=== PATIENT | female | born 1980 | race Caucasian/White ===

== ENCOUNTER 2016-09-23 10:03 | Day surgery (SDC) | payer BC ==
[~2016-09-23] VITALS: Ht 154.9 cm; Wt 83.0 kg
[2016-09-23 10:44] LABS: HEMATOCRIT 41.1 % (36.0-46.0); MCH 27.8 PG (29.0-34.0); MCHC 32.6 G/DL (30.0-36.0); MCV 85.3 FL (83-99); MEAN PLAT.VOLUME 10.2 uM^3 (9.5-12.4); PLATELET COUNT 372 K/uL (156-360); RBC DIS.WIDTH-CV 12.9 % (11.8-14.6); RBC DIS.WIDTH-SD 40.2 % (39-53); RED BLOOD COUNT 4.82 M/uL (3.80-5.20)
[2016-09-23 10:52] LABS: CHLORIDE 103 mEq/L (99-109); POTASSIUM 4.4 mEq/L (3.7-5.4); SODIUM 137 mEq/L (136-147)
[2016-09-23 10:55] LABS: GLUCOSE 101 mg/dL (70-99)
[2016-09-23 10:56] LABS: ANION GAP 8 MEQ/L (2-14)
[2016-09-23 10:57] LABS: TOTAL BILIRUBIN 1.5 mg/dL (0.0-1.0)
[2016-09-23 11:02] LABS: ALKALINE PHOSPHATASE 82 IU/L (3-129); GFR ESTIMATE (CALCULATED) > 59 mL/min/; UREA NITROGEN (BUN) 7 mg/dL (9-23)
[2016-09-23 11:07] LABS: QUANTITATIVE HCG < 4.0 MIU/ML
[2016-09-23 11:33] LABS: ADD MIUA? NO; BILIRUBIN NEGATIVE; BLOOD NEGATIVE; COLOR STRAW ((YELLOW)); GLUCOSE (STRIP) NEGATIVE; KETONES NEGATIVE; LEUKOCYTES NEGATIVE; NITRITE NEGATIVE; PROTEIN (STRIP) NEGATIVE; SPECIFIC GRAVITY 1.002 (1.000-1.030); UCUL ADDED? NO; UROBILINOGEN 0.2 MG/DL (0.2-1.0)
[2016-09-23] MEDS ORDERED: OMEPRAZOLE20 MG PO (19:35)
[2016-09-23] MEDS ORDERED: XANAX1 MG PO (19:36)
[2016-09-23] MEDS ORDERED: BUSPAR5 MG PO (19:36)
[2016-09-23 19:47] VITALS: BP 124/58
[2016-09-23] MEDS ORDERED: HYDROCODON-ACE1 EAC7 PO (23:26)
[2016-09-23] MEDS ORDERED: OXYCODONE-APAP1 EACH PO (23:26)
[2016-09-24] VITALS (8 sets, daily range): BP systolic 109–131; BP diastolic 55–82
[2016-09-24 06:22] LABS: HEMATOCRIT 37.4 % (36.0-46.0); MCH 28.1 PG (29.0-34.0); MCHC 33.2 G/DL (30.0-36.0); MCV 84.6 FL (83-99); MEAN PLAT.VOLUME 9.9 uM^3 (9.5-12.4); PLATELET COUNT 292 K/uL (156-360); RBC DIS.WIDTH-CV 12.8 % (11.8-14.6); RBC DIS.WIDTH-SD 39.5 % (39-53); RED BLOOD COUNT 4.42 M/uL (3.80-5.20); WHITE BLOOD COUNT 11.7 K/uL (4.1-10.2)
[2016-09-24 06:52] LABS: ANION GAP 10 MEQ/L (2-14); CHLORIDE 106 MEQ/L (99-109); GFR ESTIMATE (CALCULATED) > 59 mL/min/; GLUCOSE 98 mg/dL (70-99); POTASSIUM 4.5 MEQ/L (3.7-5.4); SAMPLE HEMOLYSIS CHECK 0; SAMPLE ICTERIC CHECK 0; SAMPLE LIPEMIA CHECK 0; SODIUM 138 MEQ/L (136-147); UREA NITROGEN (BUN) 9 mg/dL (9-23)
[2016-09-24] MEDS ORDERED: AUGMENTIN875 MG PO (10:29)
[2016-09-25 03:36] VITALS: BP 99/56
[2016-09-25 08:00] VITALS: BP 113/73
== END 2016-09-25 16:15 | disposition home or self-care (01) ==
LOC: EME 10:03 → SDC 18:01 → 2EASTP 18:05
PROVIDERS: Surgery
PROC: 0DTJ0ZZ Resection of Appendix, Open Approach (ICD-10-PCS; principal; 2016-09-23)
DX: K35.80 Unspecified acute appendicitis (principal); Q43.3 Congenital malformations of intestinal fixation; H53.2 Diplopia; R42 Dizziness and giddiness; E66.9 Obesity, unspecified; Z68.35 Body mass index [BMI] 35.0-35.9, adult; K21.9 Gastro-esophageal reflux disease without esophagitis; F41.9 Anxiety disorder, unspecified
CPT/HCPCS: 70551; 74020; 74176; 80048; 80053; 81003; 82948; 84702; 85027; 87210; 87491; 87591; 88304; 99281; 99285; G0378; J0330; J1170; J1335; J2060; J2175; J2250; J2405; J2543; J2765; J3010; J7050; J7120; S0020